=== PATIENT | female | born 1980 | race Caucasian/White ===

== ENCOUNTER 2021-11-18 13:55 | Outpatient (CLI) | payer OTHER ==
--- NOTE | 2021-11-19 15:16 | MRI Report ---
PROCEDURE: Hand LT W/O INDICATIONS: SPRAIN OF LEFT WRIST AND HAND TECHNIQUE: Noncontrast coronal T1 spin echo and T2 fast spin echo with fat saturation, axial proton density fast spin echo and T2 fast spin echo with fat saturation, sagittal T1 spin echo and STIR through the hand and fingers. COMPARISON: None. FINDINGS: Image quality: Excellent. Bones: Surface skin marker is placed over ulnar aspect of left wrist at the level of fifth CMC joint. The bones are normally aligned, without marrow contusions or fractures. No intra-osseous lesions. Interphalangeal joint(s): The accessory and proper collateral ligaments appear intact. The volar pl ate demonstrates normal morphology. The extensor central slips appear intact on sagittal images. Metacarpophalangeal joint(s): The accessory and proper collateral ligaments appear intact, as well a s the volar plate and adjacent deep transverse metacarpal ligaments. The sagittal bands of the exten sor gordon appear normal. Extensor apparatus: The central slips insert normally on the middle phalangeal base. The conjoint a nd terminal tendons insert normally on the distal phalangeal bases. More proximal portions of the ex tensor tendons also appear normal. There is suggestion of mildly thickened the extensor carpi ulnari s tendon at the level of ulnar styloid concerning for mild tendinosis/low-grade intrasubstance partia l thickness tear. Flexor apparatus: The flexor digitorum superficialis and profundus tendons both appear intact. All annular and cruciform pulleys appear intact, without adjacent soft tissue edema. Soft tissues: Visualized muscles demonstrate normal bulk and internal signal. No intramuscular mass es identified. No ganglion cysts. IMPRESSION: 1. Suggestion of tendinosis/low-grade intrasubstance partial thickness tear involving the extensor ca rpi ulnaris tendon at the level of ulnar styloid. 2. Other tendons and ligaments of left hand are grossly intact. 3. No marrow edema. No fracture or dislocation. No suspicious intraosseous lesion. Reviewed by: Tony Cooney MD on 11/19/2021 3:15 PM PST Approved by: Tony Cooney MD on 11/19/2021 3:15 PM PST Station ID: [id number]
--- NOTE | 2021-11-19 15:23 | MRI Report ---
PROCEDURE: Wrist LT W/O INDICATIONS: SPRAIN OF LEFT WRIST AND HAND TECHNIQUE: Noncontrast coronal proton density fast spin echo and T2 fast spin echo with fat saturation; coronal 3-D gradient echo, axial T1 spin echo and T2 fast spin echo with fat saturation, sagittal T1 spin ech o through the wrist. COMPARISON: None. FINDINGS: Image quality: Excellent. Bones and cartilage: Surface skin marker is seen placed over ulnar aspect of wrist at the level of f ifth CMC joint. The carpal bones are normally aligned. No bone marrow contusions or fractures. No e vidence for avascular necrosis. Nonspecific intraosseous cyst formation in mid capitate is seen. Carpal ligaments: The scapholunate and lunotriquetral ligaments appear intact. In the absence of in tra-articular contrast, the extrinsic carpal ligaments are not well identified. On sagittal images, the pisohamate ligament appears intact. Triangular fibrocartilage complex: The triangular fibrocartilage appears intact. The adjacent menis veena homolog appears normal in the absence of intra-articular contrast. Thickened the extensor carpi u lnaris tendon at the level of ulnar styloid is seen with intrasubstance T2 hyperintense signal. Tendons and soft tissues: The carpal tunnel structures appear normal, including the median nerve. T he ulnar nerve appears normal within Guyon's canal. Rest of the extensor tendon compartments demonstr ate normal morphology, without pathologic tendon sheath fluid. No soft tissue ganglion cysts. IMPRESSION: 1. Tendinosis and low-grade intrasubstance partial thickness tear involving extensor carpi ulnaris te ndon at the level of ulnar styloid. Rest of the wrist tendons are intact. 2. Intrinsic and extrinsic wrist ligaments are intact. 3. No marrow edema. No fracture or dislocation. No suspicious intraosseous lesion. 4. Triangular fibrocartilage complex is intact. Reviewed by: Tony Cooney MD on 11/19/2021 3:22 PM PST Approved by: Tony Cooney MD on 11/19/2021 3:22 PM PST Station ID: [id number]
== END 2021-11-18 13:56 | disposition home or self-care (01) ==
LOC: DI 13:55
PROVIDERS: ATTEND Nurse Practitioner Family
DX: S63.92XA Sprain of unspecified part of left wrist and hand, initial encounter (principal); S66.812A Strain of other specified muscles, fascia and tendons at wrist and hand level, left hand, initial encounter

== ENCOUNTER 2022-06-03 09:23 | Outpatient (CLI) | payer OTHER | END 2022-06-03 09:24 | disposition home or self-care (01) | LOC: SC 09:23 | PROVIDERS: ATTEND Nurse Practitioner Family | DX: R09.02 Hypoxemia (principal) | CPT/HCPCS: 95806 ==

== ENCOUNTER 2022-06-25 15:37 | Outpatient (CLI) | payer OTHER ==
[2022-06-25 16:07] VITALS: BP 110/80
--- NOTE | 2022-06-25 16:07 | SLEEP CARE CONSULTATION ---
Information from patient questionnaire entered by Ceci Fiore MA. I have reviewed and concur with the information entered by Ceci iFore MA. This document represents the service I personally performed and the decisions made by , Krista Johnson ARNP. History of Present Illness Service Date and Time: 06/25/20221536 Initial Walton Sleepiness Scale score: 11 (05/15/2022) Current Walton Sleepiness Scale score: 10 Additional HPI information: ZOE MCCRAY returns for follow up and results of the recently performed home sleep study. The patient was informed of the following findings: No significant sleep disordered breathing with an average AHI of 1.3 and roula oxygen saturation of 89%. Patient did not sleep supine during the study. I explained the pathophysiology behind obstructive sleep apnea. Patient does not have sleep apnea and was advised how weight gain could increase the risk of developing sleep apnea in the future. I strongly encouraged the patient to lose weight. Patient has moderate snoring. Snoring can be reduced by weight loss. Weight loss is best achieved with diet consult. Patient instructed to contact PCP for referral. Snoring can also be treated with an oral appliance from a dentist. Advised to check insurance coverage. In addition, an ENT evaluation can be do to see if other treatment is indicated. Patient was cautioned about risks of drowsy driving until sleepiness symptoms resolve. Sleep Study - Results Prior sleep studies: No Polysomnography/Home Sleep Study results: Physician Impression: The quality of the study is good. The length of the study is adequate (> 240 minutes). Please also see the tabulated and graphic data. 1. No significant sleep disordered breathing, with an AHI of 1.3/hr and roula SaO2 of 89%. During the study, the patient had 3 apneas (3 obstructive, 0 central, 0 mixed) and 5 hypopneas. The longest episode lasted 57.5 seconds. The patient did not sleep supine during this study. 2. Hypoxemia (ICD-10 R09.02), minimal, with the lowest oxygen saturation of 89 % and 0.1 minutes with SaO2 under 90%. Baseline oxygen saturation was normal (Average oxygen saturation was 95%). Allergies and Home Medications Known drug allergies: Yes (morphine) Drug allergies reviewed: Yes Home medication list reviewed: Yes (zoloft) Review of Systems Review of systems same as previous: Yes (no changes) Physical Exam Vital signs obtained and entered by: FRANCISCO J SUTTON Blood Pressure: 110/80 (left arm) Cuff size: large Heart Rate: 93 O2 Saturation: 97 Height: 5 ft 2 in Weight: 195 lb Body Mass Index: 35.6 BMI Classification: Obese Impression and Plan Snoring but no significant sleep disordered breathing. Patient advised that often weight loss will reduce snoring as well as apnea risk. An oral appliance can also be used for snoring. This would require a dental consultation. Patient cautioned not to use other online appliances as can cause bite issues. A list of accredited dentists in [facility] who make oral appliances is available in the office. Patient is advised to check if insurance will cover. An ENT consult can also be helpful to determine if any other treatment is an option. [employer] pamphlet How To Sleep Better given and explained. * Attempt to lose weight * Avoid alcohol consumption near bedtime * The patient is cautioned about driving until sleepiness is completely resolved. * Return as needed for follow up. Counseling Topics: Weight loss health impact Visit Type: In Office Time Spent with Patient (minutes): 12 Provider Statement: I spent 100% of the Face to Face Visit with the patient with greater than 50% spent counseling the patient and coordination of care.
== END 2022-06-25 15:38 | disposition home or self-care (01) ==
LOC: SC 15:37
PROVIDERS: ATTEND Nurse Practitioner Family
DX: R06.83 Snoring (principal); E66.9 Obesity, unspecified; Z68.35 Body mass index [BMI] 35.0-35.9, adult
CPT/HCPCS: 99212

== ENCOUNTER 2024-02-19 08:00 | Outpatient (CLI) | payer OTHER | END 2024-02-19 23:59 | disposition home or self-care (01) | LOC: LAB.N 08:00 | PROVIDERS: ATTEND Physician Assistant | DX: R30.0 Dysuria (principal) | CPT/HCPCS: 87077; 87086; 87181 ==